=== PATIENT | male | born 1995 | race Caucasian/White ===

== ENCOUNTER 2022-02-03 06:52 | Day surgery (SDC) | payer OTHER ==
[~2022-02-03] VITALS: Ht 182.9 cm; Wt 68.5 kg
[2022-02-03 07:04] VITALS: BP 124/83
[2022-02-03 07:34] LABS: HEMATOCRIT 39.4 % (39.0-50.0); HEMOGLOBIN 13.4 g/dl (14.0-18.0); IMMATURE GRANULOCYTES 0.2 % (0.0-5.0); MEAN CELL VOLUME 95.2 fL CALC (80.0-100.0); MEAN CORPUSCULAR HGB 32.4 pG CALC (26.0-32.0); NEUT# 2.32 thou/uL (1.82-7.42); RED BLOOD COUNT 4.14 mill/uL (4.70-6.10); RED CELL DISTRI WIDTH 11.7 % (11.5-15.5)
[2022-02-03 07:43] LABS: ALBUMIN 4.5 g/dL (3.2-5.0); ALKALINE PHOSPHATASE 86 u/l (38-126); ANION GAP 14 (6-22 (CALC)); BILIRUBIN, TOTAL 0.3 mg/dL (0.0-1.4); BUN 13 mg/dL (9-20); BUN/CREATININE RATIO 16 (12-20 (CALC)); CARBON DIOXIDE 25 mmol/l (22-30); CHLORIDE 101 mmol/l (95-108); CREATININE 0.8 mg/dL (0.7-1.3); GFR FOR AFR.AMER. > 60 ML/MIN (>=60 (CALC)); GFR OTHER RACES > 60 ML/MIN (>=60 (CALC)); POTASSIUM 4.4 mmol/l (3.5-5.1); SGOT/AST 34 u/l (17-59); SODIUM 136 mmol/l (137-146); TOTAL PROTEIN 7.2 g/dL (6.3-8.2)
[2022-02-03 09:15] VITALS: BP 100/66
[2022-02-03 19:46] VITALS: BP 125/77
[2022-02-03 22:41] VITALS: BP 133/75
[2022-02-04 04:05] VITALS: BP 125/77
[2022-02-04 04:45] LABS: HEMATOCRIT 38.5 % (39.0-50.0); HEMOGLOBIN 13.4 g/dl (14.0-18.0); IMMATURE GRANULOCYTES 0.2 % (0.0-5.0); MEAN CELL VOLUME 92.3 fL CALC (80.0-100.0); MEAN CORPUSCULAR HGB 32.1 pG CALC (26.0-32.0); MEAN CORPUSCULAR HGB CONC 34.8 g/dL CAL (32.0-36.0); NEUT# 13.35 thou/uL (1.82-7.42); RED BLOOD COUNT 4.17 mill/uL (4.70-6.10); RED CELL DISTRI WIDTH 11.9 % (11.5-15.5)
[2022-02-04 05:12] LABS: ALBUMIN 4.5 g/dL (3.2-5.0); ALKALINE PHOSPHATASE 74 u/l (38-126); ANION GAP 15 (6-22 (CALC)); BUN 10 mg/dL (9-20); BUN/CREATININE RATIO 13 (12-20 (CALC)); CARBON DIOXIDE 23 mmol/l (22-30); CHLORIDE 104 mmol/l (95-108); CREATININE 0.8 mg/dL (0.7-1.3); GFR FOR AFR.AMER. > 60 ML/MIN (>=60 (CALC)); GFR OTHER RACES > 60 ML/MIN (>=60 (CALC)); MAGNESIUM 2.2 mg/dL (1.6-2.3); SGOT/AST 34 u/l (17-59); SODIUM 137 mmol/l (137-146)
[2022-02-04 05:14] LABS: BILIRUBIN, TOTAL 0.5 mg/dL (0.0-1.4)
[2022-02-04 07:58] VITALS: BP 116/66
[2022-02-04 08:15] VITALS: BP 116/66
== END 2022-02-04 14:20 | disposition home or self-care (01) | DRG 897 ==
LOC: MS2 06:52 → ANR 06:52
PROVIDERS: ATTEND Anesthesiology
DX: F11.20 Opioid dependence, uncomplicated (principal)
CPT/HCPCS: J2354